=== PATIENT | male | born 1995 | race Asian ===

== ENCOUNTER 2019-05-02 15:17 | Emergency (ER) | payer SELFPAY ==
[~2019-05-02] VITALS: Ht 162.6 cm; Wt 50.0 kg
[2019-05-02 15:31] VITALS: BP 124/95
[2019-05-02] MEDS ORDERED: LIDOcaine 1% W/epiNEPHrine 1:200,000 10ml vial IJ STA (16:56)
[2019-05-02] MEDS ORDERED: HYDR-4353 PO (21:20)
== END 2019-05-02 21:48 | disposition home or self-care (01) ==
LOC: ER 15:18
DX: S42.442A Displaced fracture (avulsion) of medial epicondyle of left humerus, initial encounter for closed fracture (principal); S51.012A Laceration without foreign body of left elbow, initial encounter; Z88.8 Allergy status to other drugs, medicaments and biological substances; V48.0XXA Car driver injured in noncollision transport accident in nontraffic accident, initial encounter; Y93.89 Activity, other specified; Y92.488 Other paved roadways as the place of occurrence of the external cause; Y99.8 Other external cause status
CPT/HCPCS: 12002; 73030; 73080; 99283